=== PATIENT | female | born 1930 | race Caucasian/White ===

== ENCOUNTER 2019-10-12 07:56 | Inpatient (IN) | payer OTHER ==
[~2019-10-12] VITALS: Ht 170.2 cm; Wt 71.5 kg
[~2019-10-12 07:56] MED LIST: AMLO5 PO; ASPI81EC; BAYER CHEWABLE81 MG PO; BCOIRO; BISO5 PO; CITA20 PO; DIAZ5 PO; ESOM20; GABA100 PO; HYDHOMSY; IRBE75; LEVFLO500 PO; LISINOPRIL; LOSA50 PO; LOSHYD100 PO; METO10 PO; NEXIUM; OXYACE5T PO; PERI2; PRAV10; PRAV20 PO; PRAVASTATIN; SPIHYD; ZOLP5 PO
[2019-10-12 08:18] LABS: BASOPHILS ABSOLUTE AUTO 0.05 K/mm3 (0.00-0.23); BASOPHILS PERCENT AUTO 1 % (0-2); EOSINOPHILS ABSOLUTE AUTO 0.22 K/mm3 (0.00-0.68); EOSINOPHILS PERCENT AUTO 3 % (0-6); Hematocrit 41.9 % (33.0-51.0); Hemoglobin 13.8 g/dL (11.5-16.0); IMMATURE GRAN ABSOLUTE AUTO 0.03 K/mm3 (0.00-0.10); IMMATURE GRAN PERCENT AUTO 0 % (0-1); LYMPHOCYTES ABSOLUTE AUTO 1.74 K/mm3 (0.84-5.20); LYMPHOCYTES PERCENT AUTO 22 % (21-46); MONOCYTES ABSOLUTE AUTO 0.47 K/mm3 (0.16-1.47); MONOCYTES PERCENT AUTO 6 % (4-13); Mean Corpuscular HGB 32.6 pg (26.0-34.0); Mean Corpuscular HGB Conc 32.9 g/dL (31.5-36.5); Mean Corpuscular Volume 99 fL (80-100); NEUTROPHILS ABSOLUTE AUTO 5.48 K/mm3 (1.96-9.15); NEUTROPHILS PERCENT AUTO 69 % (41-73); Platelet Count 206 K/mm3 (150-400); RDW Coefficient Variation 13.2 % (11.7-14.2); RDW Standard Deviation 48.4 fL (35.1-46.3); Red Blood Cell Count 4.23 M/mm3 (3.80-5.20); White Blood Cell Count 7.99 K/mm3 (4.00-11.30)
[2019-10-12 08:34] LABS: International Normalized Ratio 1.01; Prothrombin Time Results 10.8 Sec (9.7-11.5)
[2019-10-12] MEDS ORDERED: ASPI81CH PO (08:36)
[2019-10-12 08:37] LABS: Alanine Aminotransfer (ALT/SGP 21 U/L (12-78); Albumin, Blood 3.4 g/dL (3.4-5.0); Albumin/Globulin Ratio 1.1 (0.8-1.8); Alk Phos 57 U/L (50-136); Anion Gap 6 mmol/L (6-16); Aspartate Aminotrans (AST/SGOT 19 U/L (12-37); Bilirubin, Total 0.7 mg/dL (0.1-1.0); Blood Urea Nitrogen 15 mg/dL (8-24); Bun/Creatinine Ratio 23.4 (12.0-20.0); CO2, Blood 27 mmol/L (21-32); Chloride, Blood 110 mmol/L (98-108); Creatinine, Blood 0.64 mg/dL (0.40-1.00); Globulin, Blood 3.2 g/dL (2.2-4.0); Glomerular Filtration Rate >60 (60-); Glucose, Blood 115 mg/dL (70-99); Potassium, Blood 3.5 mmol/L (3.5-5.5); Sodium, Blood 143 mmol/L (136-145); Total Protein, Blood 6.6 g/dL (6.4-8.2)
--- NOTE | 2019-10-12 12:40 | NUR ---
ADMIT NOTE- PT ADMITTED D/T [facility] SHE HAS HAD FOR YEARS LAST IMAGE WAS IN 2017 PER REPORT FROM ED THERE HAS BEEN A LARGE AMOUNT OF INCREASE IN SIZE. CT SHOWS A MIDLINE SHIFT. PLAN IS TO USE KEPPRA AND DEXAMETHASONE, IF NO IMPROVEMENT WITHIN 2 DAYS THE POSSIBLE PLAN IS HOSPICE. PT HAS BEEN VOIDING INCONTINENTLY TODAY. SHE REQUESTED THE BEDPAN AND WHEN IT WAS PLACED SHE CALLED AND STATED SHE WAS DONE THEN HANDED THE BEDPAN BACK TO STAFF. BED CHANGE COMPLETED, PT APPEARS TO BE ALET AND ORIENTED BUT IS A BIT MORE CONFUSED THAN SHE APPEARS. BED ALARM SET FOR SAFETY.
--- NOTE | 2019-10-12 16:41 | NUR ---
PT PAIN- PT C/O CRAMPING IN HER LLE. SHE WAS ASKING HER TO RUB IT AND IT WAS VERY UNCOMFORTABLE PALCED A PILLOW BENEATH HER KNEE ELEVATING THE LEG SLIGHTLY AND WENT TO GET SOME TYLENOL. WHEN RN RETURNED WITH TYLENOL THE PT STATED SHE DOESN'T HAVE ANY PAIN. THE CRAMPING WAS GONE. PT FAMILY PRESENT FOR THIS.
--- NOTE | 2019-10-12 17:24 | NUR ---
SHIFT SUMMARY- PT ALERT AND ORIENTED TO SELF AND FAMILY. SHE IS FORGETFUL AND THIS EVENING SHE CALLED TO ASK THE DR TO COME AND EXPLAIN THE RESULTS OF HER CAT SCAN TO HER HE HAD NOT YET DONE SO, HER FAMILY INFORMED HER THAT HE HAD ALREADY DONE THAT, SHE IS VERY ACCEPTING AT THIS TIME AND TAKES THE REDIRECTION WELL JUST SAYING "OH OK." DR ORDERED A [facility] SOFT/GRD MEAT DIET FOR THE PT. UPON ARRIVAL TO THE FLOOR A NEURO CHECK WAS DONE BY THE RN PT HAS FEELING IN HER FACE WITH A LEFT SIDED DROOP. BUT FULL MOTION OF HER TOUNG AND SHE CAN SWALLOW ON COMMAND. ASSISTED THE PT WITH HER MEAL AND MONITORED HER WHILE SHE ATE. SHE WAS ABLE TO DRINK COFFEE W/O DIFFICULTY NO COUGH AFTER, SHE DRANK V8 BY STRAW, AGAIN WITH NO COUGH AFTER. PT ATE ABOUT HALF OF HER MEAL OF CARROTS AND MAC N' CHEESE W/O DIFFICULTY. SHE DID AT THE END TRY TO DRINK THE COFFEE A BIT TOO FAST A CHOKED A LITTLE, SHE HAS A STRONG COUGHED AND CLEARED WELL, NO SIGN OF ANY ASPIRATION. FAMILY PRESENT AT THE TIME. PT SHOULD BE MONITORED WITH MEALS FOR SAFETY, WILL PASS ON TO NIGHT RN SO THEY ARE AWARE. OVER ALL PT DID WELL WITH THE FOOD.
--- NOTE | 2019-10-12 18:06 | NUR ---
PT ATE DINNER WITH SUPERVISION, SHE NEEDED LITTLE REMINDERS TO SWALLOW HER FOOD BEFORE THE NEXT BITE OR BEFORE TAKING A DRINK, SHE FOLLOWS INSTRUCTIONS WELL BUT WILL NEED REMINDERS AT EACH MEAL.
--- NOTE | 2019-10-12 18:16 | NUR ---
CALLED DENIA MENDEZ ABOUT DEXAMETHASONE DOSE ORDERED AT 1800 HOWEVER HER ADMIT DOSE WAS GIVEN AT 1400 OK TO PUSH THE EVENING DOSE TO 2000. AND THE 0000 DOSE OUT TO 0100, AFTER THAT THEY SHOULD BE BACK ON SCHEDULE.
--- NOTE | 2019-10-13 03:13 | NUR ---
SHIFT SUMMARY PATIENT WAS CONFUSED OVERNIGHT, FORGETTING THAT SHE HAD TO STAY IN THE HOSPITAL FOR MEDICAL TREATMENT, WANTING TO GET A HOLD OF HER DAUGHTER AT 0200 TO ENSURE HER GOT HIS MEDS. ETC. SHE WAS PLEASANT ALL NIGHT BUT UNABLE TO SLEEP. HAD COMPLAINTS OF PAIN IN HER LEFT LEG, PATIENT MEDICATED PER EMAR AND REPOSITIONED. PATIENT MOVED TO ROOM 353 AT 0300. REPORT GIVEN TO VICKY SWANN AND GERI SWANN.
--- NOTE | 2019-10-13 03:15 | NUR ---
RECEIVED REPORT FROM CARYN CALDERON AT [id number]
--- NOTE | 2019-10-13 04:12 | NUR ---
BURRER OPERATOR SUMMARY ASSUMED CARE AT 0305. PT ALERT AND ORIENTED TO SELF AND FAMILY. NO ACUTE DISTRESS NOTED. CURRENTLY APPEARS TO BE SLEEPING. BED IN LOWEST POSITION WITH CALL LIGHT IN REACH. WILL CONTINUE TO MONITOR AND REPORT TO ONCOMING RN.
--- NOTE | 2019-10-13 19:40 | NUR ---
SHIFT SUMMARY: NO ACUTE CHANGES TO REPORT THIS SHIFT. PT AMS; CONFUSED; ORIENTED TO SELF AND FAMILY. MEDICATED FOR PAIN PER EMAR. PT EVAL THIS SHIFT; PT UP TO BSC c 2-ASSIST & GAIT BELT. REMOTE MONITORING FOR SAFETY. AWAITING OT & ST EVALS. REPORT GIVEN TO ONCOMING RN.
--- NOTE | 2019-10-14 07:04 | NUR ---
SHIFT SUMMARY ALERT TO SELF; RESPONDS TO VERBAL STIMULI. COOPERATIVE WITH CARE. DOES NOT UTILIZE CALL SYSTEM. INCONTINENT OF BOWEL/BLADDER. ATTEMPTING TO EXIT BED @ BEGINNING OF SHIFT; PLACED IN FANNIE VEST FOR SAFETY. BEDTIME MEDICATIONS GIVEN WELL PRN TRAZADONE. APPEARED TO REST MUCH OF THE NIGHT. 0400 WOKEN FOR BRIEF CHANGE AND REPOSITIONING. SINCE THAT TIME HAD BEEN CALLING OUT/YELLING. VERY DIFFICULT TO CONSLE/RE-DIRECT. NEW PRN ORDER FOR HALDOL FROM ON-CALL PHYSICIAN FOR AGITATION. DID NOT HAVE ANY AFFECT. CALLED DAUGHTER GARTH TO SEE IF SHE WOULD COME IN AND SIT WITH HER; STATED THAT IT WOULD ONLY TAKE HER 20 MINUTES. APPEARS MUCH MORE CALM SINCE DAUGHTER ARRIVED. BED REMAINED IN LOWEST POSITION; ALARM ON. CALL LIGHT AND BELONGINGS WITHIN REACH. WCTM. CONTINUED TO MONITOR OVERNIGHT.
--- NOTE | 2019-10-14 15:39 | NUR ---
SHIFT SUMMARY PT HAS BEEN A/O TO HERSELF AND FAMILY. SHE HAS BEEN PAINFUL AND MEDICATED PER E-MAR. DR KENNEDY MET WITH THE PT AND HER FAMILY TODAY AND SHE HAS BEEN CHANGED TO COMFORT CARE. THE FAMILY HAS BEEN WITH HER AT THE BEDSIDE ALL DAY. SHE IS ABLE TO MAKE HER NEEDS KNOWN AND IS RESTING IN BED. SHE HAS HER CALL LIGHT IN REACH AND HER SON IS AT THE BEDSIDE.
--- NOTE | 2019-10-14 19:39 | NUR ---
CALL PLACED TO HOSPITALIST DR. YOUNG. PT ATTEMPTING TO GET OUT OF BED REPEATEDLY. SHE RECEIVED ATIVAN ABOUT 15 MINUTES PRIOR. SHE IS WEAK AND DISORIENTED. 3 SIDE RAILS UP. BED ALARM SOUNDING SEVERAL TIMES. CAMERA ON. RECEIVED CALL FROM REMOTE CAMERA MONITOR STATING PT IS CRAWLING OUT OF BED. PT FOUND W/HEAD ON CHAIR AND LEGS STILL IN BED, FACE DOWN. ASSISTED BACK TO BED W/ HEAVY 2 ASSIST [address] FANNIE VEST APPLIED. DR. YOUNG NOTIFIED. WILL WORK TO KEEP PT COMFORTABLE AND ATTEMPT TO REMOVE RESTRAINT SOON POSSIBLE.
--- NOTE | 2019-10-15 04:21 | NUR ---
SHIFT SUMMARY: PT COMFORT CARE STATUS. MED FOR PAIN X2 AND ANXIETY X 2 TONIGHT. PT HAS REMAINED ASLEEP AND APPEARS COMFORTABLE SINCE MIDNIGHT. RESTRAINTS REMOVED AT 0010. PT HAS MADE NO ATTEMPTS TO GET OUT OF BED. BED LOW, CALL BUTTON IN REACH, BED ALARM ON. CAMERA MONITORS ON. FAMILY CALLED AND UPDATED ON PT STATUS TONIGHT.
--- NOTE | 2019-10-15 06:42 | NUR ---
PT AWAKE AND BEGAN TO REMOVE CLOTHES, BEDDING, AND ATTEND. ATTEND NOTED TO BE WET- CHANGED. PT REPOSITIONED. PT CONT TO YELL PLEASE, GET ME UP. NODS HEAD "YES" AND STATES "YES" WHEN ASKED ABOUT PAIN. MED W/OXYCODONE AND ATIVAN PER EMAR. PT WIGGLING LEGS AROUND IN BED BUT SO FAR IS NOT DEMONSTRATING ENOUGH STRENGTH TO GET SELF TO EDGE OF BED. ON CAMERA MONITOR. WILL CONT TO MONITOR CLOSELY.
--- NOTE | 2019-10-15 15:42 | NUR ---
PAL CARE COMFORT CARE VISIT - Case conferenced with RN prior to my visit. She had just administered ativan for tremor and agitation. Pt is trying to sit up and get out of bed. Soothed and calmed pt, coached her with slowing her breathing down. Obtained fan for room as distraction/comfort measure. Cool cloth to forehead seemed to work for a few minutes at a time. Instructed family on assisting pt with positioning, speaking softly to her and doing things for her that she found relaxing previously. They had music playing for her. , son and daughter at the bedside, very attentive. Delivery Sales Worker offered for prayer and deb declined and stated they had been praying with her. Discussed plan for s/s management with RN and using meds more regularly per EMR. Plan to check back later for reassessment. RN reports that pt is still able to swallow PO medications if positioned for safety with swallowing.
--- NOTE | 2019-10-15 16:44 | NUR ---
SHIFT SUMMARY PT REMAINS ON COMFORT CARE. HER DAUGHTER HAS BEEN AT HER BEDSIDE SINCE THE START OF THE SHIFT. PALLIATIVE CARE AND THE STREET CONTRACTOR HAVE BOTH BEEN IN TO MEET WITH THE DAUGHTER TODAY. THE PLAN IS FOR THE PT TO GO HOME TOMORROW OR THE NEXT DAY ON [facility]. THE PT HAS BEEN MEDICATED FOR HER PAIN AND ANXIETY PER E-MAR. SHE IS RESTING IN BED NOW WITH HER FAMILY AT THE BEDSIDE.
--- NOTE | 2019-10-15 18:06 | NUR ---
Initial spiritual care note: I met with Claudia's and dtr at bedside. Both are tearful, but appropriate. Claudia and Damir have been 65 years, and he admits he does not know what he will do when Claudia is gone. Dtr appears loving and suportive. Both responded well to exploration of shay. Spiritual direction was well recieved. Prayer for a peaceful transition at bedside. I encouraged self-care and rest. Claudia appeared to be sleeping peacefully throughout visit. Family complimentary of staff. I will remain available.
--- NOTE | 2019-10-16 06:02 | NUR ---
STOREKEEPER ENGINEERING SUMMARY Claudia had several periods of distress/discomfort overnight. However, they seemed to respond well to current treatment orders. Patient is much more somnolent tonight, and either her daughter, Milady or myself were unable to wake her enough to assist her to safely take her Keppra at HS. Overnight, her regimen was 10mg Roxynol with 1-2mg crushed ativan mixed in with a few drops of water and also given sublingually.
[2019-10-16] MEDS ORDERED: MORP20L SL (10:08)
[2019-10-16] MEDS ORDERED: Ativan1 MG SL (10:10)
--- NOTE | 2019-10-16 10:19 | NUR ---
PT HAS ORDERS TO DC HOME ON HOSPICE. FAMILY HAS HOSPICE SET UP AT THE HOUSE AND THE HOSPICE NURSE IS SCHEDULED TO MEET THEM THERE THIS MORNING. ALL INSTRUCTIONS HAVE BEEN REVIEWED WITH THE FAMILY WHO VERBALIZES AN UNDERSTANDING. PT HAS NO IV. TRANSPORT IS SCHEDULED FOR 10:30.
--- NOTE | 2019-10-16 11:18 | NUR ---
COMFORT CARE VISIT - APPROX PAST HOUR SPENT AT BEDSIDE ATTEMPTING S/S MANAGEMENT WITH SON ALSO AT BEDSIDE. NONPHARMACOLOGICAL INTERVENTIONS ATTEMPTED AFTER MEDS GIVEN WITHOUT RELIEF. CONFERENCED WITH NURSING. CASE CONFERENCED WITH PHARMACY ON CORRECT PRN DOSING OF FULL DOSE AVAILABLE TO PT. PT'S S/S ARE NOT WELL CONTROLLED EVEN AFTER 1 MG ATIVAN AND 10 MG ROXANOL GIVEN 75 MINUTES AGO AND HALDOL GIVEN IN THE LAST 30 MINUTES. TRANSPORT COMING AT ANY TIME. RN ADVISED OF INSTRUCTIONS FROM PHARMACY ON HOW TO ADMINISTER FULL DOSE OF COMFORT MEDS CORRECTLY. SON ATTENTIVE AND DISTRESSED AT PT'S CONT. WRITHING, MOANING, GRIMACY AND GRUNTING APPROX EVERY 30 SECONDS. SUPPORT MAINTAINED FOR PT AND SON. POLST COMPLETED AT CM REQUEST.
== END 2019-10-16 11:15 | disposition hospice, home (50) | DRG 80 ==
LOC: ER 07:56 → MEDS 07:57
PROVIDERS: Emergency Medicine; ADMIT Internal Medicine
DX: G93.6 Cerebral edema (principal); G93.41 Metabolic encephalopathy; G81.94 Hemiplegia, unspecified affecting left nondominant side; D32.0 Benign neoplasm of cerebral meninges; R29.810 Facial weakness; G40.409 Other generalized epilepsy and epileptic syndromes, not intractable, without status epilepticus; R45.1 Restlessness and agitation; I10 Essential (primary) hypertension; E78.5 Hyperlipidemia, unspecified; R62.7 Adult failure to thrive; Z51.5 Encounter for palliative care; Z66 Do not resuscitate; K21.9 Gastro-esophageal reflux disease without esophagitis; I35.1 Nonrheumatic aortic (valve) insufficiency; I25.10 Atherosclerotic heart disease of native coronary artery without angina pectoris; Z85.3 Personal history of malignant neoplasm of breast
CPT/HCPCS: 70450; 80053; 85025; 85610; 85730; 93005; 93010; 96365; 96375; 97162; 97530; 99285-25; A9270; G0378; J1100; J1630; J1650; J1953; J7050